=== PATIENT | female | born 1955 | race African-American/Black ===

== ENCOUNTER 2025-02-04 13:12 | Emergency (ER) | payer MEDICARE ==
[~2025-02-04] VITALS: Ht 167.6 cm; Wt 64.0 kg
[2025-02-04 13:17] VITALS: TEMP 37.1; O2SAT 100
[2025-02-04 14:22] LABS: BASOPHILS % 1.0 % (0.0-2.0); EOSINOPHILS % 1.8 % (0.0-5.0); HEMATOCRIT. 34.1 % (36.0-48.0); HEMOGLOBIN. 10.9 g/dL (12.0-16.0); LYMPHOCYTES % 32.2 % (20.0-50.0); MEAN PLATELET VOLUME 7.6 fl (7.4-10.4); MONOCYTES % 12.8 % (2.0-8.0); NEUTROPHILS % 52.2 % (40.0-76.0); PLATELET 278 x1000/uL (130-400); RED BLOOD CELL COUNT 4.19 mill/uL (4.2-5.4); RED CELL DISTRIBUTION WIDTH 14.6 % (11.6-14.6)
[2025-02-04 14:31] LABS: CLARITY URINE CLOUDY (CLEAR); COLOR URINE DARK YELLOW (YELLOW); GLUCOSE URINE NEGATIVE (NEGATIVE); KETONES URINE NEGATIVE (NEGATIVE); NITRITE URINE POSITIVE (NEGATIVE); OCCULT BLOOD URINE NEGATIVE (NEGATIVE); PH URINE 5.5 (4.5-8.0); PROTEIN URINE 1+ (NEGATIVE); SPECIFIC GRAVITY URINE 1.016 (1.005-1.030)
[2025-02-04 14:32] LABS: LEUKOCYTE ESTERASE URINE 3+ (NEGATIVE); UROBILINOGEN URINE 0.2 E.U./dL (0.2-1.0)
[2025-02-04 14:37] LABS: CREATININE 1.1 mg/dL (0.6-1.0)
[2025-02-04 14:38] LABS: UREA NITROGEN BLOOD 13 mg/dL (9-23)
[2025-02-04 14:54] LABS: BACTERIA URINE 4+; SQUAMOUS EPITHELIAL CELL URINE 1+ /lpf (RARE/1+); WBC URINE 25-50 /hpf (0-2)
[2025-02-04 14:55] LABS: MUCUS URINE TRACE /lpf (< = 2+); RBC URINE 0-2 /hpf (0-2)
[2025-02-04] MEDS ORDERED: CEFP200T13 MT (15:00)
[2025-02-04] MEDS ORDERED: CLIN-194 MT (15:06)
[2025-02-04] MEDS ORDERED: IBUP-2028 MT (15:06)
[2025-02-04] MEDS: LIDOCAINE HCL 1% 20ML VIAL INFIL ONE (15:14)
[2025-02-04] MEDS: CLINDAMYCIN HCL 150MG CAPSULE PO SCH (15:14)
[2025-02-04] MEDS: CEFTRIAXONE SODIUM 1G VIAL IM ONE (15:14)
[2025-02-04] MEDS: IBUPROFEN 400MG TABLET PO ONE (15:15)
[2025-02-04 15:23] VITALS: BP 154/85; PULSE 75; RESP 16; O2SAT 99
== END 2025-02-04 15:24 | disposition home or self-care (01) ==
LOC: EDBD 13:12 → ER 13:12
DX: K02.9 Dental caries, unspecified (principal); R22.0 Localized swelling, mass and lump, head; N39.0 Urinary tract infection, site not specified; E11.9 Type 2 diabetes mellitus without complications; I10 Essential (primary) hypertension; Z85.3 Personal history of malignant neoplasm of breast; Z87.440 Personal history of urinary (tract) infections; Z79.899 Other long term (current) drug therapy
CPT/HCPCS: 99283; 80048; 81003; 82962; 85025; 87086; 87186; 87077; 36415; 96372; J0696; J2003